=== PATIENT | female | born 1980 | race Hispanic/Latino ===

== ENCOUNTER 2018-08-21 09:26 | Emergency (ER) | payer MEDICAID ==
[2018-08-21 09:31] VITALS: O2SAT 98
[2018-08-21 09:32] VITALS: BMI 26.2
--- NOTE | 2018-08-21 10:04 | ED PDOC ---
History of Present Illness History of Present Illness: Pt reports 3 days of sinus pain on pressure, R> L, associated with nasal congestion, right ear pain. No fever or chills. NO sore throat or cough. Pt taking Tylenol without relief. HPI: Influenza Time Seen by Provider: 08/21/18 09:30 Chief Complaint: Cough, Cold, Congestion Past Medical History Reviewed: Nursing Documentation, Vital Signs Vital Signs: Last Vital Signs Temp 97.6 F 08/21/18 09:30 Pulse 92 H 08/21/18 09:30 Resp 16 08/21/18 09:30 BP 125/80 08/21/18 09:30 Pulse Ox 98 08/21/18 09:50 - Medical History PMH: No Chronic Diseases - Surgical History Surgical History: No Surg Hx - Family History Family History: States: Unknown Family Hx - Living Arrangements Living Arrangements: With Family - Social History Current smoker - smoking cessation education provided: No Alcohol: None Drugs: Denies - Immunization History Hx Tetanus Toxoid Vaccination: (unknown) - Home Medications Home Medications: Ambulatory Orders Medication Instructions Recorded Famotidine [Pepcid] 40 mg PO DAILY PRN #30 tab 04/16/15 Ondansetron [Zofran] 4 mg PO Q8H PRN #30 tab 04/16/15 Naproxen [Naprosyn] 500 mg PO BID PRN #20 tablet 01/03/16 Amoxicillin/Clavulanate [Augmentin 1 tab PO BID #14 tab 08/21/18 875 MG-125 MG] Methylprednisolone [Medrol Dose 4 mg PO DAILY #21 mg 08/21/18 Pack (21 tabs)] - Allergies Allergies/Adverse Reactions: Allergies Allergy/AdvReac Type Severity Reaction Status Date / Time No Known Allergies Allergy Verified 01/03/16 10:35 Review of Systems ROS Statement: Except As Marked, All Systems Reviewed And Found Negative ENT: Positive for: Nose Discharge, Other (sinus pain and pressure) Physical Exam - Reviewed Nursing Documentation Reviewed: Yes Vital Signs Reviewed: Yes - Physical Exam Appears: Positive for: Well, Non-toxic, No Acute Distress Head Exam: Positive for: ATRAUMATIC, NORMAL INSPECTION, NORMOCEPHALIC Skin: Positive for: Normal Color, Warm, DRY Eye Exam: Positive for: EOMI, Normal appearance, PERRL ENT: Positive for: TM Is/Are (WNL), Sinus Pain/Drainage, Nasal Congestion, Other ((+) maxillary sinus tenderness). Negative for: Pharyngeal Erythema, Tonsillar Exudate, Tonsillar Swelling Neck: Positive for: Normal, Painless ROM Cardiovascular/Chest: Positive for: Regular Rate, Rhythm Respiratory: Positive for: CNT, Normal Breath Sounds Gastrointestinal/Abdominal: Positive for: Normal Exam, Soft Back: Positive for: Normal Inspection Extremity: Positive for: Normal ROM Neurologic/Psych: Positive for: Alert, Oriented - ECG O2 Sat by Pulse Oximetry: 98 Disposition - Clinical Impression Clinical Impression: Sinusitis - Patient ED Disposition Is Patient to be Admitted: No - Disposition Disposition: Routine/Home Disposition Time: 10:04 Condition: STABLE Prescriptions: Amoxicillin/Clavulanate [Augmentin 875 MG-125 MG] 1 tab PO BID #14 tab Methylprednisolone [Medrol Dose Pack (21 tabs)] 4 mg PO DAILY #21 mg Instructions: Sinusitis in Adults Forms: [facility] (Ecuadorean)
[2018-08-21 10:27] VITALS: BP 110/70; PULSE 70; RESP 20; TEMP 98
== END 2018-08-21 10:27 | disposition home or self-care (01) ==
LOC: H.ER 09:26
DX: J32.9 Chronic sinusitis, unspecified (principal)